=== PATIENT | female | born 1945 | race Caucasian/White ===

== ENCOUNTER 2018-03-08 09:52 | Emergency (ER) | payer OTHER ==
[~2018-03-08] VITALS: Ht 152.4 cm; Wt 53.1 kg
[2018-03-08] MEDS ORDERED: GABAPENTIN100 MG (10:13)
[2018-03-08] MEDS ORDERED: PROZAC20 MG (10:13)
[2018-03-08] MEDS ORDERED: RANITIDINE HCL150 M1 (10:13)
[2018-03-08] MEDS ORDERED: SYNTHROID88 MCG (10:13)
[2018-03-08] MEDS ORDERED: ESTAZOLAM1 MG (10:14)
[2018-03-08] MEDS ORDERED: MOBIC15 MG (10:14)
[2018-03-08] MEDS ORDERED: NEURIN (10:15)
[2018-03-08] MEDS ORDERED: PRILOSEC OTC20 MG (10:15)
== END 2018-03-08 12:11 | disposition home or self-care (01) ==
LOC: ER 09:52
DX: M25.551 Pain in right hip (principal)